=== PATIENT | female | born 1955 | race Caucasian/White ===

== ENCOUNTER 2016-05-25 02:34 | Inpatient (IN) | payer OTHER ==
[~2016-05-25] VITALS: Ht 154.9 cm; Wt 102.1 kg
[~2016-05-25 02:34] MED LIST: ALPRAZOLAM0.5 MG PO; EXCEDRIN MIGRAI1 TAB PO; FERROUS SULFAT325 M3 PO; FUROSEMIDE40 M1 PO; FUROSEMIDE40 MG PO; HYCET 325 MG/1473 ML PO; IBU800 MG PO; KLOR-CON 10MEQ10 MEQ PO; LOSARTAN POTASS1 TA2 PO; LOVENOX 4040 MG/0.4 SC; PANTOPRAZOLE SO40 MG PO; PREVACID 30MG30 MG PO; VENLAFAXINE H37.5 M1 PO; ZANTAC150 M1 PO; ZOFRAN ODT4 MG PO
--- NOTE | 2016-05-25 10:21 | Operative Report ---
Operative/Inv Procedure Report Surgery Date: 05/25/16 Name of Procedure: Right total knee arthroplasty Pre-Operative Diagnosis: Right knee primary osteoarthritis Post-Operative Diagnosis: Same With final pathology pending Estimated Blood Loss: scant Surgeon/Clothing Pattern Preparer: JAIME DE LA CRUZ,Derek BETHEA Anesthesia: block Implants: [place] triathlon total knee system-size 4 femur, size 4 tibia, 11 mm cruciate retaining polyethylene, 29 patella Drains: None Specimens: Femoral, tibial, patellar bone Microbiology: Urine Tourniquet: 55 minutes Complications: None Condition: Stable Operative Indication: Patient is a 61-year-old woman with a very long history of bilateral knee pain. She developed mechanical symptoms in addition to her increasing pain. Previous evaluation confirmed severe end-stage osteoarthritis of the knee. She was able to put off total knee arthroplasty for many years by treated with conservative measures including medications and injections activity modification. However more recently these measures did not provide any significant relief. She wished to proceed with total knee arthroplasty after risks, benefits and expectations were discussed which included but were not limited to persistent knee pain, need for subsequent surgery, infection, DVT, anesthesia risks, injury to blood vessel or nerve. Operative/Procedure Note Note: Patient was brought to the operating room and transferred to the operating table. Once under appropriate anesthesia the right lower extremity was prepped and draped in standard fashion. Preoperative IV antibiotics were given prophylactically. The leg was elevated exsanguinated and tourniquet was inflated to 300 mm of pressure. A standard anterior incision was made for anticipated medial parapatellar approach to the knee. Incision was taken down through subcutaneous tissue down to normal work underlying retinaculum. A medial retinacular approach with minimal extension into the quadriceps tendon was used to enter the knee. Ossify formations were excised. Patient had tricompartmental osteoarthritis severe. Remnants of the medial lateral meniscal tissues were excised. Remnants of the ACL excised. Knee was flexed patella was subluxed. Drill was used to enter the intramedullary canal the distal femur for the intramedullary guide. Cutting block was pinned in place for 6 valgus cut and the appropriate thickness cut. The femur was sized to a size 4 though she had somewhat of a asymmetric anterior posterior versus medial lateral dimension. Size 5 was too wide for her femur. Size 4 risked mild notching and the posterior condylar cut appeared to be too small with the appropriate positioning of the size 4 cutting block. The size 4 cutting block was pinned in place without altering position. This was followed by the 4 cuts.. I then used the external tibial alignment guide to prepare for the tibial cut. Medial lateral retractors were replaced. PCL retractor was applied and remainder of the medial lateral meniscal tissues were excised. PCL was recessed for balancing purposes. Dissection was taken on the medial aspect of the tibia for balancing purposes as well. I then pinned the cutting block to reproduce patient's posterior slope and accomplish a neutral medial to lateral orientation. Cut was made. The tibia was sized to a size 4. Size 4 tibia size 4 femur and a 9 mm insert were applied. The knee was taken out to full extension. Patient had symmetrical medial lateral balancing and no evidence of liftoff of the tibial tray. It appeared to be necessary to increase to 11 mm but this would be confirmed later on the case. I then measured the patella. The appropriate thickness was removed. The patella was sized to a size 29. 3 lug holes were drilled as medial as possible to maximize patellofemoral tracking. There was no need for a lateral release. Rotation was marked. The lug holes were drilled in the femur. All instruments rotation was removed from the knee and then I finished preparation of the tibia with the tibial punch with the appropriate rotation as previously determined. All instrumentation was removed. Copious irrigation the knee followed. I then mixed the cement back table. Once the cement was ready was applied to the dry clean bony surfaces of the tibia. The anterior chamfer bone of the femur was used to plug the intramedullary hole to minimize postoperative hemarthrosis and inflammation. The size 4 tibia was impacted in place and excess cement was removed with curettes. Cement was applied to the dry clean bony surfaces of the femur. The size 4 femoral component was impacted in place and excess cement was removed with curettes. The 11 mm insert was inserted and the knee was taken out to full extension. Cement was applied to dry clean bony surfaces of the patella. The size 29 patella was impacted in place and excess cement was removed with a knife. She has cement was hardening I did appear articular pericapsular injection of a cane with epinephrine and Toradol for postoperative pain and inflammation management. The knee was taken out flexion after the cement had hardened I checked for any prominent cement. There was no evidence of that copious irrigation the knee followed. I removed the trial component 11 mm area I was satisfied with the stability in full extension mid flexion and full flexion to gravity. Copious irrigation the tibial tray followed. I made sure was there was no remaining soft tissue, bone or cement fragments within the tibial tray. I impacted the definitive size 11 mm cruciate retaining component. The locking mechanism was confirmed. Copious irrigation followed. Tourniquet was deflated at 55 minutes. Hemostasis was obtained. No need for a drain. Retinaculum interrupted #1 Vicryl sutures. Subcutaneous tissues closed in 2 layers with 2-0 Vicryl suture and skin was closed running 3-0 Vicryl suture with the knee in flexion. Dressings were applied patient was awakened and taken recovery in good condition. No intraoperative complications blood loss was minimal. Discharge Disposition: PACU
[2016-05-25 12:10] VITALS: BP 110/64
[2016-05-25] MEDS ORDERED: COUMADIN5 M2 PO (13:06)
[2016-05-25] MEDS ORDERED: PERCOCET 5-3251 EACH PO (13:07)
--- NOTE | 2016-05-25 13:15 | Patient Discharge Instructions ---
Discharge Instructions General Discharge Information You were seen/treated for: RIGHT KNEE PAIN You had these procedures: RIGHT TOTAL KNEE REPLACEMENT Watch for these problems: INCREASING PAIN DESPITE THE USE OF PAIN MEDICATION, REDNESS, WARMTH, SWELLING. DRAINAGE OF ANY TYPE FROM INCISION. INABILITY TO BEAR WEIGHT ON RIGHT LEG. FEVER GREATER THAN 101.5. Do not soak the wound: Yes No bath, but you may shower: Yes Other wound care: KEEP WOUND CLEAN AND DRY, DAILY DRY DRESSING CHANGES. Special Instructions: YOU ARE TAKING A BLOOD THINNING MEDICATION CALLED COUMADIN. ANOTHER NAME FOR THIS MEDICATION IS WARFARIN. THE DOSE OF THIS MEDICATION MAY CHANGE DAILY. IT IS BASED ON LABWORK CALLED INR. YOUR INR WILL BE TESTED AT A MINIMUM OF 2X/ WEEK. THE RESULTS WILL BE COMMUNICATED WITH DR. SANDOVAL WHO WILL RECOMMEND HOW MUCH COUMADIN YOU ARE TO BE TAKING. PLEASE BE SURE TO CONTACT HIS OFFICE IF YOU HAVE NOT BEEN GIVEN INSTRUCTIONS REGARDING YOUR DOSE PRIOR TO TAKING IT. Diet Continue normal diet: Yes Recommended Diet: Regular Additional DIET Information: ADVANCE TOLERATED Activity Full Activity/No Limits: No Activity Self Limited: Yes Pounds, do NOT lift more than: 10 Additional ACTIVITY Info: WEIGHTBEAR TOLERATED ON RIGHT LEG Acute Coronary Syndrome Inclusion Criteria At DC or during hospital stay patient has or had the following: ACS DIAGNOSIS No Discharge Core Measures Meds if any: Prescribed or Continued at Discharge Meds if any: NOT Prescribed or Continued at Discharge Congestive Heart Failure Inclusion Criteria At DC or during hospital stay patient has or had the following: CHF DIAGNOSIS No Discharge Core Measures Meds if any: Prescribed or Continued at Discharge Meds if any: NOT Prescribed or Continued at Discharge Cerebrovascular accident Inclusion Criteria At DC or during hospital stay patient has or had the following: CVA/TIA Diagnosis No Discharge Core Measures Meds if any: Prescribed or Continued at Discharge Meds if any: NOT Prescribed or Continued at Discharge Venous thromboembolism Inclusion Criteria VTE Diagnosis No VTE Type NONE VTE Confirmed by (Test) NONE Discharge Core Measures - Per Current guidelines, there needs to be overlap - treatment for the first 5 days of Warfarin therapy. - If discharged on Warfarin prior to 5 days of - overlap therapy, the patient will need to be - assessed for post discharge needs including - *Post discharge parental anticoagulation - *Warfarin and/or parental anticoagulation education - *Follow up date to check INR post discharge At least 5 days overlap therapy as Inpatient No Meds if any: Prescribed or Continued at Discharge Note: Overlap Therapy is Warfarin and Anticoagulant Meds if any: NOT Prescribed or Continued at Discharge
--- NOTE | 2016-05-25 13:18 | Surgical Discharge Summary ---
See Addendum Visit Information Visit Dates Admission Date: 05/25/16 Discharge Date: 05/28/16 History of Present Illness Chief Complaint: RIGHT KNEE PAIN Medical History Blood Transfusion Hx: No Neurological: NONE EENT: NONE Cardiovascular: hypertension Respiratory: NONE Gastrointestinal: NONE Hepatic: NONE Renal: NONE Musculoskeletal: osteoporosis Psychiatric: anxiety Endocrine: NONE Blood Disorders: NONE Cancer(s): NONE MACHINE WHITENER/Reproductive: NONE History of MRSA: No History of VRE: No History of CDIFF: No Influenza Vaccine: 12/24/15 Surgical History Pertinent Surgical History: appendectomy, cholecystectomy, hernia repair- umbilical, LAP SLEEVE GASTRECTOMY LYPOMA REMOVED L SHOULDER Family History Relations & Conditions If Any: FATHER (Heart disease). Psychosocial History Who Do You Live With? Patient/Self Services at Home: None What is Your Primary Language? Swazi Review of Systems: SEE H&P Hospital Course Course Attending Physician: JAIME DE LA CRUZ,LAKE Primary Care Physician: GURMEET ROPER MD Hospital Course: SURY WAS ADMITTED TO THE HOSPITAL ON 05/25/2016 FOR AND ELECTIVE RIGHT TOTAL KNEE REPLACEMENT. SHE TOLERATED THE PROCEDURE WELL. SHE WAS TRANSFERRED TO A GENERAL SURGICAL FLOOR. HER DIET WAS ADVANCED AND TOLERATED. SHE VOIDED SPONTANEOUSLY. HER PAIN WAS WELL CONTROLLED WITH PO PAIN MEDICATIONS. HER VITAL SIGNS WERE STABLE AND WITHIN NORMAL LIMITS. SHE WAS EVALUATED AND TREATED BY PHYSICAL THERAPY. SHE WAS DEEMED APPROPRIATE FOR DISCHARGE WITH HOME PT SERVICES. Allergies: Coded Allergies: erythromycin base (Intermediate, GI DISTRESS 05/22/16) hydromorphone (Intermediate, NAUSEA 05/22/16) Disposition Summary Disposition Principal Diagnosis: RIGHT KNEE UNILATERAL PRIMARY OSTEOARTHRITIS Additional Diagnosis: NONE Discharge Disposition: home health services Discharge Instructions General Discharge Information Code Status: Full Code Patient's Diet: REGULAR, ADVANCE TOLERATED Patient's Activity: WEIGHTBEAR TOLERATED ON RIGHT LEG Follow-Up Instructions/Appts: PLEASE CALL OR CONTACT DR. SANDOVAL' OFFICE TO ARRANGE/CONFIRM FOLLOW UP APPOINTMENT. HE WOULD LIKE FOR YOU TO BE SEEN IN HIS OFFICE IN 2 WEEKS FROM DATE OF SURGERY. Medications at Discharge Discharge Medications: Continue taking these medications: VENLAFAXINE HCL (Venlafaxine HCl ER) 37.5 MG CAP.ER.24H 1 Capsule ORAL DAILY Qty = 30 LOSARTAN/HYDROCHLOROTHIAZIDE (Losartan-Hctz 100-25 MG Tab) 100 MG-25 MG TABLET 1 Tablet ORAL DAILY Qty = 30 Ferrous Sulfate (Ferrous Sulfate) 325 MG (65 MG IRON) TABLET 1 Tablet ORAL DAILY Ranitidine HCl (Zantac) 150 MG TABLET 1 Tablet ORAL DAILY Furosemide (Furosemide) 40 MG TABLET 1 Tablet ORAL DAILY as needed for EDEMAS Start taking the following new medications: Warfarin Sodium (Coumadin) 5 MG TABLET 1 Tablet ORAL DAILY Qty = 30 No Refills Instructions: DOSE SUBJECT TO CHANGE ON A DAILY BASIS. AWAIT SPECIFIC INSTRUCTIONS PRIOR TO TAKING. Oxycodone HCl/Acetaminophen (Percocet 5-325 MG Tablet) 5 MG-325 MG TABLET 1-2 Tablet ORAL EVERY 4-6 HOURS as needed for PAIN Qty = 36 No Refills Morphine Sulfate (Ms Contin) 15 MG TABLET.ER 1 Tablet ORAL TWICE DAILY Qty = 5 No Refills
--- NOTE | 2016-05-25 14:30 | PN- Orthopedic ---
See Addendum Subjective Subjective: Patient received on general surgical floor, s/p right total knee replacement. She tolerated the procedure well. She has tolerated po intake. Veliz catheter remains in place. On Q in place with good effect. Pain well controlled at this time. Objective Vital Signs and I&Os Vital Signs Date Time Temp Pulse Resp B/P Pulse O2 O2 Flow FiO2 Ox Delivery Rate 05/25 1342 84 110/64 04/ 1210 97.7 84 20 110/64 95 Room Air Room Air Intake & Output 05/25 1600 05/25 0800 04/ 0000 04/ 1600 05/24 0800 05/24 0000 Intake Total 480 Output Total Balance 480 Intake, Oral 480 Patient 225 lb Weight Physical Exam: General: Alert and oriented x3, no acute distress Cardiac: RRR, s1s2 Pulmonary: CTA bilaterally Abdomen: Non-tender, non-distended Extremities: Moves all extremities, distal sensation intact. Motor 5/5 in plantar and dorsi flexion. Skin warm and well perfused. DP pulses palpable bilaterally. Bilateral calves soft and non-tender. Surgical site: RIGHT knee, dressing dry and intact. Assessment/Plan Assessment/Plan This is a 61 year old female, POD 0, s/p right total knee replacement. -Coumadin to start tonight for dvt ppx, alps -PO percocet for pain, iv morphine for breakthrough if necessary -Vancomycin 1g x1 additional dose for abx ppx -Activity: WBAT, oob with pt -Diet: Advance as tolerated -Bowel regimen: Colace, senna as needed -Plan for d/c veliz catheter morning of pod 1 -Plan for d/c on Q and dressing change pod 2 -Plan for d/c to home on pod 3 with services -Will d/w Dr. Conley Core Measures/Miscellaneous Venous Thromboembolism VTE Risk Factors: Age > 40, Surgery VTE Contraindications: No Contraindications VTE Diagnosis: No Beta Savita Is Beta Savita a Home Med? No Antibiotics Is Patient on Antibiotics? Yes If Yes: prophylaxis
[2016-05-25 15:41] VITALS: BP 114/60
[2016-05-25 22:06] VITALS: BP 100/58
[2016-05-26 01:29] VITALS: BP 110/50
[2016-05-26 07:14] VITALS: BP 118/64
--- NOTE | 2016-05-26 07:26 | PN- Orthopedic ---
See Addendum Subjective Subjective: The patient was seen this morning postoperatively day #1. She reports that her pain is not adequately controlled at the current time. She reports receiving only Percocet which isn't helping. She has no other complaints the current time and is eager to get out of bed with physical therapy. Objective Vital Signs and I&Os Vital Signs Date Time Temp Pulse Resp B/P Pulse O2 O2 Flow FiO2 Ox Delivery Rate 05/26 0714 98.1 73 20 118/64 96 Room Air 05/26 0129 97.9 70 16 110/50 97 Room Air 05/25 2206 97.9 81 19 100/58 93 / 1541 97.9 97 20 114/60 96 Room Air 05/25 1342 84 110/64 05/25 1210 97.7 84 20 110/64 95 Room Air Room Air Intake & Output 05/26 0800 /04 0000 04/ 1600 / 0800 / 0000 / 1600 Intake Total 565 480 Output Total 150 650 Balance -150 565 -170 Intake, IV 225 Intake, Oral 340 480 Output, Urine 150 650 Patient 225 lb Weight Physical Exam: Gen.: Alert and in no obvious distress Skin: Warm and dry Extremities: Bilateral lower extremities are warm without calf tenderness or significant edema. Gross motor and sensory are intact. Right lower extremity surgical dressing is clean, dry, and intact. There is an On-Q pain pump in place. Assessment/Plan Assessment/Plan Assessment: 61-year-old female status post right total knee arthroplasty postoperative day #1. The patient is progressing as expected however her pain is not adequately managed at the current time. Plan: Add MS Contin 15mg po bid to current pain regiment Out of bed with physical therapy DC Jack catheter 1000 ML bolus of normal saline for borderline urine output and encourage increased by mouth intake Follow-up morning laboratory studies and we dose Coumadin to reach an INR between 2 and 3 Incentive spirometry GI and DVT prophylaxis For surgical dressing change tomorrow Core Measures/Miscellaneous Venous Thromboembolism VTE Risk Factors: Age > 40, Surgery VTE Contraindications: No Contraindications VTE Diagnosis: No Beta Savita Is Beta Savita a Home Med? No Antibiotics Is Patient on Antibiotics? No
[2016-05-26 08:07] LABS: ABSOLUTE BASOPHIL COUNT 0 /CUMM (0.0-0.2); ABSOLUTE EOSINOPHIL COUNT 0 /CUMM (0.0-0.7); ABSOLUTE GRANULOCYTE CT 12.1 /CUMM (1.4-6.5); ABSOLUTE LYMPH COUNT 1.7 /CUMM (1.2-3.4); ABSOLUTE MONOCYTE COUNT 0.8 /CUMM (0.10-0.60); BASOPHIL % 0.2 % (0.0-2.0); EOSINOPHIL % 0 % (0-5); GRANULOCYTE % 82.5 % (42.2-75.2); MEAN CORPUSCULAR HGB 29.2 PG (27.0-31.0); MEAN CORPUSCULAR HGB CONC 33.5 G/DL (33.0-37.0); MEAN PLATELET VOLUME 8.7 FL (7.4-10.4); PLATELET COUNT 244 /CUMM (130-400); RBC DISTRIBUTION WIDTH 14.1 % (11.5-14.5); RED BLOOD CELL CT 3.56 /CUMM (4.20-5.40); WHITE BLOOD CELL COUNT 14.6 /CUMM (4.8-10.8)
[2016-05-26 08:49] LABS: PT 11.5 SEC (9.4-12.5)
[2016-05-26 10:00] VITALS: BP 142/80
--- NOTE | 2016-05-26 14:00 | NUR ---
LATE ENTRY: PT SEEN BY ANESTHETIA STAFF WHO ADJUSTED PT'S ONQ PUMP TO 14 ML/HR TO BETTER ASSIST PT'S PAIN MANAGEMENT. WILL CONT TO MONITOR.
[2016-05-26 14:45] VITALS: BP 112/65
[2016-05-26 22:32] VITALS: BP 102/70
[2016-05-27 06:50] VITALS: BP 150/82
--- NOTE | 2016-05-27 07:46 | PN- Orthopedic ---
See Addendum Subjective Subjective: No acute overnight events reported. Patient states that pain is controlled well , although she does note some increasing discomfort between doses. OnQ has been d/c'd. Her biggest complaint now is that she has some gi discomfort that began shortly after recieving medications last night. She has been belching. She denies chest pain and shortness of breath. She denies vomitting although she states she has been somewhat nauseated. Objective Vital Signs and I&Os Vital Signs Date Time Temp Pulse Resp B/P Pulse O2 O2 Flow FiO2 Ox Delivery Rate 05/27 0650 99.0 88 18 150/82 95 Room Air 05/26 2232 98.0 78 19 102/70 94 05/26 1445 98.0 75 20 112/65 97 Room Air 05/26 1034 71 142/80 05/26 1000 97.6 71 18 142/80 98 Room Air Intake & Output 05/27 0800 05/27 0000 04 1600 05/26 0800 05/26 0000 05/25 1600 Intake Total 600 640 565 480 Output Total 800 350 150 650 Balance -200 -350 490 565 -170 Intake, IV 300 225 Intake, Oral 600 340 340 480 Output, Urine 800 350 150 650 Patient 225 lb Weight Physical Exam: General: Alert and oriented x3, no acute distress Cardiac: RRR, s1s2 Pulmonary: CTA bilaterally Abdomen: Non-tender, non-distended Extremities: Moves all extremities, distal sensation intact. Motor 5/5 in plantar and dorsi flexion. Skin warm and well perfused. DP pulses palpable bilaterally. Bilateral calves soft and non-tender. Surgical site: Right knee: Dressing dry and intact. Taken down. Steri strips in place, no drainage from wound. No surrounding erythema. OnQ removed. Dressing containing xeroform, 4x4, spandage reapplied. Assessment/Plan Assessment/Plan This is a 61 year old female, POD 2, s/p right tkr. Currently c/o gi discomfort. -Tums now, reassess, consider simethicon if no improvement -Stagger morning meds -Continue diet as tolerated -Continue current pain regimen -OOB, WBAT, rolling walker -F/U am labs -DVT ppx: coumadin, dose per inr, target 2-3 -Will d/w Dr. Conley Core Measures/Miscellaneous Venous Thromboembolism VTE Risk Factors: Age > 40, Surgery VTE Contraindications: No Contraindications VTE Diagnosis: No Beta Savita Is Beta Savita a Home Med? No Antibiotics Is Patient on Antibiotics? No
[2016-05-27 08:18] LABS: ABSOLUTE BASOPHIL COUNT 0 /CUMM (0.0-0.2); ABSOLUTE EOSINOPHIL COUNT 0.1 /CUMM (0.0-0.7); ABSOLUTE GRANULOCYTE CT 6.7 /CUMM (1.4-6.5); ABSOLUTE LYMPH COUNT 2.3 /CUMM (1.2-3.4); ABSOLUTE MONOCYTE COUNT 0.7 /CUMM (0.10-0.60); BASOPHIL % 0.5 % (0.0-2.0); EOSINOPHIL % 0.8 % (0-5); GRANULOCYTE % 68.8 % (42.2-75.2); HEMATOCRIT 29.4 % (37-47); MEAN CORPUSCULAR HGB 29.3 PG (27.0-31.0); MEAN CORPUSCULAR HGB CONC 33.5 G/DL (33.0-37.0); MEAN CORPUSCULAR VOLUME 87.5 FL (81.0-99.0); MEAN PLATELET VOLUME 8.8 FL (7.4-10.4); PLATELET COUNT 220 /CUMM (130-400); RBC DISTRIBUTION WIDTH 13.9 % (11.5-14.5); RED BLOOD CELL CT 3.36 /CUMM (4.20-5.40); WHITE BLOOD CELL COUNT 9.8 /CUMM (4.8-10.8)
[2016-05-27 14:18] VITALS: BP 134/80
--- NOTE | 2016-05-27 16:35 | RADIOLOGY REPORT ---
EXAMINATION: XR KNEE, RIGHT CLINICAL INFORMATION: Status post right total knee arthroplasty. COMPARISON: None TECHNIQUE: Two views of the right knee. FINDINGS: Postsurgical changes of total right knee arthroplasty are noted with intact hardware and satisfactory alignment. Cortical defect is noted within the distal anterior aspect of the right femur, seen on the lateral projection superior to the humeral component of the prosthesis. The soft tissues show changes consistent with recent surgery. IMPRESSION: Postsurgical changes of total right knee arthroplasty with intact hardware and satisfactory alignment. Cortical defect is identified superior to the femoral prosthesis, seen best on the lateral projection.
[2016-05-27 22:46] VITALS: BP 134/70
[2016-05-28 06:38] VITALS: BP 120/57
[2016-05-28 08:14] LABS: ABSOLUTE BASOPHIL COUNT 0.1 /CUMM (0.0-0.2); ABSOLUTE EOSINOPHIL COUNT 0.1 /CUMM (0.0-0.7); ABSOLUTE GRANULOCYTE CT 5.6 /CUMM (1.4-6.5); ABSOLUTE LYMPH COUNT 1.8 /CUMM (1.2-3.4); ABSOLUTE MONOCYTE COUNT 0.6 /CUMM (0.10-0.60); BASOPHIL % 0.7 % (0.0-2.0); EOSINOPHIL % 1.7 % (0-5); GRANULOCYTE % 68.3 % (42.2-75.2); HEMATOCRIT 28.8 % (37-47); MEAN CORPUSCULAR HGB 29.3 PG (27.0-31.0); MEAN CORPUSCULAR HGB CONC 33.8 G/DL (33.0-37.0); MEAN CORPUSCULAR VOLUME 86.7 FL (81.0-99.0); MEAN PLATELET VOLUME 8.6 FL (7.4-10.4); PLATELET COUNT 231 /CUMM (130-400); RBC DISTRIBUTION WIDTH 13.6 % (11.5-14.5); RED BLOOD CELL CT 3.32 /CUMM (4.20-5.40); WHITE BLOOD CELL COUNT 8.3 /CUMM (4.8-10.8)
[2016-05-28 08:21] LABS: PT 18.1 SEC (9.4-12.5)
--- NOTE | 2016-05-28 11:03 | PN- General Surgery ---
See Addendum Subjective Subjective: No overnight events. Pain is well controlled with oral pain meds. Was able to work was able to ambulate with assistance. No active complaints. Passing flatus and tolerating diet. No active complaints. Objective Vital Signs and I&Os Vital Signs Date Time Temp Pulse Resp B/P Pulse O2 O2 Flow FiO2 Ox Delivery Rate 05/28 0932 87 134/72 05/28 0638 99.1 76 20 120/57 93 Room Air 05/27 2246 97.6 89 20 134/70 98 Room Air 05/27 1418 98.3 98 18 134/80 96 Room Air Intake & Output 05/28 1600 05/28 0800 05/28 0000 05/27 1600 05/27 0800 05/27 0000 Intake Total 230 400 960 240 600 Output Total 650 750 600 600 200 800 Balance -650 -520 -200 360 40 -200 Intake, Oral 230 400 960 240 600 Output, Urine 650 750 600 600 200 800 Physical Exam: Appears in no distress, alert and oriented 3, resting in chair. Lung sounds were clear to auscultate bilaterally. Heart is regular rate and rhythm. Abdomen: Soft, Non-tender, non-distended, no rebound or guarding Extremities: skin is warm and well for well perfused. Able to move all extremities, motor and sensory intact bilaterally in the lower extremity. Palpable pulses were present in the lower extremity. Right knee: Postoperative site is clean dry and intact with dressing and Steri-Strips in place . No erythema, no drainage from wound. Assessment/Plan Assessment/Plan This is a 61 year old obese female with BMI of 42,s/p right total knee replacement postop day 3 doing well. Therefore plan is to continue the current pain regimen for pain control, physical therapy while in house. INR is 1.7 today which is improved form 1.4 ,will redose Coumadin at the same dosage 7.5 mg and anticipated discharge later today with home physical therapy. Core Measures/Miscellaneous Venous Thromboembolism VTE Risk Factors: Age > 40, Surgery VTE Contraindications: No Contraindications VTE Diagnosis: No Beta Savita Is Beta Savita a Home Med? No Antibiotics Is Patient on Antibiotics? No
[2016-05-28] MEDS ORDERED: MS CONTIN15 M2 PO (11:16)
--- NOTE | 2016-05-28 14:09 | NUR ---
Physical Therapy: Met with patient and Itzel Bruce (Patient Experience Elementary Supervisor). Discussed patient's issues she had with student physical therapist. Concerns were expressed and handeled. Pt reports feeling better at this time about her concerns.
[2016-05-28 14:21] VITALS: BP 124/68
[2016-05-28 21:59] VITALS: BP 132/66
[2016-05-29 07:24] VITALS: BP 160/86
[2016-05-29 08:39] LABS: PT 17.6 SEC (9.4-12.5)
[2016-05-29 10:02] VITALS: BP 158/86
--- NOTE | 2016-05-29 10:29 | PN- Orthopedic ---
Subjective Subjective: Patient reporting no acute overnight events. Ambulated this am with PT, tolerated well. Cleared PT on stairs yesterday. States she is feeling much better and more confident today. Denies chest pain, shortness of breath and difficulty breathing. Denies nausea and vomitting. Has not had bm but is passing flatus. Objective Vital Signs and I&Os Vital Signs Date Time Temp Pulse Resp B/P Pulse O2 O2 Flow FiO2 Ox Delivery Rate 05/29 1002 88 158/86 05/29 0724 98.2 90 20 160/86 99 Room Air 05/28 2159 97.7 83 20 132/66 94 Room Air 05/28 1421 98.9 77 20 124/68 97 Room Air Intake & Output 05/29 1600 05/29 0800 05/29 0000 05/28 1600 05/28 0805/28 0000 Intake Total 1200 230 400 Output Total 800 1550 750 600 Balance -800 -350 -520 -200 Intake, Oral 1200 230 400 Output, Urine 800 1550 750 600 Physical Exam: General: Alert and oriented x3, no acute distress Cardiac: RRR, s1s2 Pulm: CTA bilaterally Abdomen: Non-tender, non-distended Extremities: Moves all extremities, distal sensation intact. Motor intact. Skin warm and well perfused. Bilateral calves soft and non-tender Surgical site : Right knee, dressing dry and intact Assessment/Plan Assessment/Plan This is a 61 year old female, POD 4, s/p right tkr -F/U am labs -Dose coumadin per inr, target inr 2-3 -Continue current pain regimen -Diet as tolerated -Bowel regimen recommended -Activity: As desired, wbat -Dispo: Home today with [facility] -Will d/w Dr. Conley Core Measures/Miscellaneous Venous Thromboembolism VTE Risk Factors: Age > 40, Surgery VTE Contraindications: No Contraindications VTE Diagnosis: No Beta Savita Is Beta Savita a Home Med? No Antibiotics Is Patient on Antibiotics? No
--- NOTE | 2016-05-29 12:17 | NUR ---
NURSING NOTE: UNABLE TO EDIT TIME ON COZAAR AND EFFEXOR ON CMR PA UNABLE TO FIX. TIMES WRITTEN IN AND EXPLAINED TO PT
== END 2016-05-29 14:44 | disposition home health service (06) | DRG 470 ==
LOC: ENRESERVDT → ENRESERVTM → 2NB 02:34 → ENPENDDIS 02:34 → SDA 02:34 → DELPENDDIS 02:34 → SDA 07:00 → 2NB 12:23
PROVIDERS: Physician Assistant; Physician Assistant Surgical; ADMIT Orthopaedic Surgery
PROC: 0SRC0J9 Replacement of Right Knee Joint with Synthetic Substitute, Cemented, Open Approach (ICD-10-PCS; principal; 2016-05-25)
DX: M17.11 Unilateral primary osteoarthritis, right knee (principal); Z68.41 Body mass index [BMI] 40.0-44.9, adult; I10 Essential (primary) hypertension; K21.9 Gastro-esophageal reflux disease without esophagitis; E66.01 Morbid (severe) obesity due to excess calories
CPT/HCPCS: 2NBP; 36415; 73560-RT; 82436; 87086; 88305; 97110-GO; 97116-GO; 97530-GO; C1713; J0131; J0171; J1885; J2405; J2795; J3370; J3490; J7040

== ENCOUNTER 2017-05-06 15:19 | Inpatient (IN) | payer OTHER ==
[~2017-05-06] VITALS: Ht 154.9 cm; Wt 107.5 kg
[~2017-05-06 15:19] MED LIST changes: +COUMADIN5 M2 PO; +LOSARTAN-HCTZ1 EAC2 PO; +MS CONTIN15 M2 PO; +PERCOCET 5-3251 EACH PO; -VENLAFAXINE H37.5 M1 PO; +VENLAFAXINE H37.5 M4 PO
[2017-05-21] MEDS ORDERED: FERROUS SULFAT325 M3 PO (16:18)
[2017-05-21] MEDS ORDERED: ATIVAN0.5 M1 PO (16:19)
--- NOTE | 2017-05-24 09:51 | Operative Report ---
Operative/Inv Procedure Report Surgery Date: 05/24/17 Name of Procedure: Left total knee arthroplasty Pre-Operative Diagnosis: Primary osteoarthritis left knee Post-Operative Diagnosis: Same Estimated Blood Loss: less than 50ml Surgeon/Motorcycle Delivery Driver: Jarvis DE LA CRUZ,Derek Chen Anesthesia: block Implants: Jemima triathlon total knee system-size 5 femur, size 4 tibia, 11 mm cruciate retaining polyethylene, 29 patella Drains: None Specimens: bone/femoral-tibial, patella Microbiology: Urine Tourniquet: 62 minutes Complications: None Condition: Stable Operative Indication: Patient is a 62-year-old woman with a chronic history of knee pain. She's been diagnosed many years ago with osteoarthritis. Symptoms progressed and symptoms did not respond to normal conservative measures was recently. She underwent right total knee arthroplasty about a year ago and plan for the left total knee arthroplasty. She underwent previous treatments including medications and injections activity modification viscose supplementation and initially had responded to those treatments but ultimately symptoms continued to worsen and treatment measures did not provide significant long-term relief. She wished to proceed with total knee arthroplasty after risks benefits and expectations were discussed which included but were not limited to persistent knee pain, need for subsequent surgery, infection, DVT, injury to blood vessel or nerve, anesthesia risks Operative/Procedure Note Note: Patient was brought to the operating room and transferred to the operating table. Once under appropriate anesthesia the left lower extremity was prepped and draped in standard fashion. Preoperative IV antibiotic's were given prophylactically. Standard anterior she's was made after the leg was elevated exsanguinated and tourniquet was inflated to 350 minus of pressure. Incision was taken down sharply to the underlying retinaculum. A medial retinacular approach with a minimal extension into the quadriceps tendon was used to enter the knee joint. End-stage degenerative changes of the patellofemoral compartment and medial compartment and moderate changes lateral compartment were noted. Osteophytes were excised. Remnants of the degenerative medial and lateral meniscus meniscal tissues were excised. Remnants of the ACL was excised. Knee was flexed while subluxing the patella medially after placing retractors and position. The distal femur was entered into the intramedullary canal with the drill. The distal cutting jig was pinned in position for a 6 valgus cut. Soft tissues were protected throughout the procedure. The distal femoral cut was made. Femur was sized to a size 5. Size 5 cutting jig was pinned in place and the cuts were made. I then turned my attention to the tibia. The external tibial alignment guide was placed and the cutting guide was pinned in position for a neutral cut from medial to lateral and reproducing patient's posterior slow-paced on preoperative templating and intraoperative findings. Again retractors were placed protect soft tissues during this cut. PCL retractor was placed posteriorly cut was made. I was satisfied with the overall alignment and the amount of proximal tibia that was removed. Some soft tissue balancing was done just prior to this cut and was confirmed following the cut. I then also removed osteophytes from the posterior oozing curved osteotome followed by curet. I then did a trial reduction with a size 5 femur, size 4 tibia which match patient's anatomy and a 9 mm insert. This would be adjusted later on the case. The leg was taken out to full extension. I then placed 2 towel clamps on the patella and made my patellar cut. 3 lug holes were drilled and the 29 patella trial was put in position and the tracking was checked. Good tracking. No need for lateral release thisfindingbutthiswouldbecheckedlateroninthecaseaftertourniquetwasdef[facility].Thetrialcomponentswerethen[facility] [place].[facility] finished preparation of the proximal tibia with the appropriate sized tibial punch. The previous rotation was marked and the preparation of femur and tibia was finished with this rotation. 2 lug holes were drilled in the femur prior to removal the trial components. Copious irrigation of the followed. I used the anterior chamfer bone to plug the distal femur to minimize postoperative hemarthrosis and swelling. After copious irrigation was finished and cement was being mixed on the back table was applied to the dry clean bony surfaces of the tibia. Size 4 tibial component was impacted in place and excess cement was removed with curettes. Cement was applied to the dry clean bony surfaces of distal femur and the size 5 femur was impacted in place excess cement was removed with curettes. 9 mm insert was placed and the knee and knee was taken out to full extension area cement was applied to the dry clean bony surfaces of the patella. The size 29 patella was impacted in place and excess cement was removed with a knife. As cement hardening process I did appear articular. Capsular injection of a cocktail which included ropivacaine with epinephrine and Toradol to try to minimize postoperative process and inflammation. Once cement hardened I took the knee through range of motion. Small pieces of excess cement removed with the osteotome area I did a trial reduction with an 11 mm polyethylene component as well as was satisfied with the 11 mm full extension good mid flexion stability and full flexion to gravity small is much as the posterior thigh allowed in flexion. Trial polyethylene was removed. Copious irrigation the tibial tray followed. I made sure there was no remaining soft tissue, bone fragment or cement fragment within the tibial tray and then impacted the definitive size 11 mm cruciate retaining polyethylene in position and the locking mechanism was confirmed. The knee was taken out to full extension and the stability was checked again. I was satisfied. Copious irrigation the knee followed. Tourniquet was deflated at 62 minutes. Hemostasis was obtained. No need for a drain. Every level of closure was followed by copious irrigation. The retinacular incision and minimal extension to the quadriceps tendon was closed with interrupted #1 Vicryl sutures. Subcutaneous tissues closed in 2 layers with 2-0 Vicryl due to the depth of the wound. Skin was closed running 3-0 Vicryl suture with the knee in flexion. Progestins were applied and patient was awakened and taken to recovery room in good condition. No intraoperative complications. Blood loss was minimal to less than 50 mL
--- NOTE | 2017-05-24 11:17 | Admission Core Measures ---
Acute Coronary Syndrome (CM) ACS Core Measures Acute Coronary Syndrome Diagnosis No Congestive Heart Failure (NEW) CHF Core Measures Congestive Heart Failure Diagnosis No Cerebrovascular Accident (NEW) CVA Core Measures CVA/TIA Diagnosis No Venous Thromboembolism VTE Core Arash (View Protocol) VTE Risk Factors Surgery No Mechanical VTE Prophylaxis d/t N/A MechProphylax Ordered No VTE Pharm Prophylaxis d/t NA PharmProphylax ordered Problem List As ranked by this Provider includes Assessment & Plan 1. Unilateral primary osteoarthritis, left knee HOME MEDS Home Med List Ferrous Sulfate 325 MG (65 MG IRON) TABLET 1 TAB PO DAILY SUPPLEMENT ( Reported) Furosemide 40 MG TABLET 0.5-1 TAB PO DAILY PRN EDEMA (Reported) Lorazepam (Ativan) 0.5 MG TABLET 1 TAB PO PRN ANXIETY (Reported) Losartan/Hydrochlorothiazide (Losartan-Hctz 100-25 MG Tab) 100 MG-25 MG TABLET 1 TAB PO DAILY BP (Reported) Venlafaxine HCl (Venlafaxine HCl ER) 37.5 MG CAP.ER.24H 1 CAP PO DAILY MENTAL HEALTH (Reported)
--- NOTE | 2017-05-24 11:19 | Patient Discharge Instructions ---
Discharge Instructions General Discharge Information You were seen/treated for: Left knee pain related to unilateral primary osteoarthritis You had these procedures: Left total knee replacement Watch for these problems: Increasing pain despite the use of pain medication Increasing redness, warmth or swelling Drainage of any type from incision Inability to bear weight on operative leg Persistent nausea and vomiting Fever greater than 101.5 degrees Do not soak the wound: Yes No bath, but you may shower: Yes Other wound care: Please keep wound clean and dry. No ointments or lotions of any type on or near incision at any time. No exceptions. Your dressing will be changed by your nurse on the second day after your surgery. Daily dry dressing changes are recommended each day thereafter. Do not soak your wound in a bath at any time until otherwise indicated by your surgeon. You may shower, please dry wound immediately after shower with a clean towel. Special Instructions: Constipation: Pain medication can cause constipation. Dr. Conley has recommended that you take Colace and miralax each day. You may discontinue this medication if you develop loose stool or diarrhea. If you wish to continue this medication, it is available over the counter. If you are unable to move your bowels after several days, if you are unable to pass gas and are developing bloating, nausea, or vomiting as a result, please contact your doctor. Diet Continue normal diet: Yes Recommended Diet: Regular Activity Full Activity/No Limits: No Activity Self Limited: Yes Pounds, do NOT lift more than: 10 Acute Coronary Syndrome Inclusion Criteria At DC or during hospital stay patient has or had the following: ACS DIAGNOSIS No Discharge Core Measures Meds if any: Prescribed or Continued at Discharge Meds if any: NOT Prescribed or Continued at Discharge Congestive Heart Failure Inclusion Criteria At DC or during hospital stay patient has or had the following: CHF DIAGNOSIS No Discharge Core Measures Meds if any: Prescribed or Continued at Discharge Meds if any: NOT Prescribed or Continued at Discharge Cerebrovascular accident Inclusion Criteria At DC or during hospital stay patient has or had the following: CVA/TIA Diagnosis No Discharge Core Measures Meds if any: Prescribed or Continued at Discharge Meds if any: NOT Prescribed or Continued at Discharge Venous thromboembolism Inclusion Criteria VTE Diagnosis No VTE Type NONE VTE Confirmed by (Test) NONE Discharge Core Measures - Per Current guidelines, there needs to be overlap - treatment for the first 5 days of Warfarin therapy. - If discharged on Warfarin prior to 5 days of - overlap therapy, the patient will need to be - assessed for post discharge needs including - *Post discharge parental anticoagulation - *Warfarin and/or parental anticoagulation education - *Follow up date to check INR post discharge At least 5 days overlap therapy as Inpatient No Meds if any: Prescribed or Continued at Discharge Note: Overlap Therapy is Warfarin and Anticoagulant Meds if any: NOT Prescribed or Continued at Discharge
--- NOTE | 2017-05-24 11:21 | Surgical Discharge Summary ---
Visit Information Visit Dates Admission Date: 05/24/17 Discharge Date: 05/28/17 History of Present Illness Chief Complaint: Left knee pain related to unilateral primary osteoarthritis Medical History Neurological: NONE EENT: NONE Cardiovascular: hypertension Respiratory: NONE Gastrointestinal: NONE Hepatic: NONE Renal: NONE Musculoskeletal: osteoporosis Psychiatric: anxiety Endocrine: NONE Blood Disorders: NONE Cancer(s): NONE MANAGER CUSTOM/Reproductive: NONE History of MRSA: No History of VRE: No History of CDIFF: No Influenza Vaccine: 12/24/15 Surgical History Pertinent Surgical History: appendectomy, cholecystectomy, hernia repair- umbilical, LAP SLEEVE GASTRECTOMY LYPOMA REMOVED L SHOULDER Family History Relations & Conditions If Any: FATHER (Heart disease). Psychosocial History Who Do You Live With? Patient/Self Services at Home: None What is Your Primary Language? Spanish Review of Systems: See H&P Hospital Course Course Attending Physician: Jarvis DE LA CRUZ,Gustavo Primary Care Physician: Noel Lewis MD Hospital Course: Patient was admitted to the hospital for an elective total joint replacement. The procedure was tolerated well and patient was transferred to a general surgical floor. Diet was advanced and tolerated, and the patient voided spontaneously. The patient was evaluated and treated by physical therapy. At the time of hospital discharge, the vital signs were stable, neurovascular status was intact, and pain was controlled with the use of oral pain medications. Allergies: Coded Allergies: Anesthetics - Amide Type (NAUSEA 05/21/17) Anesthetics - Marcela Type- Parabens (NAUSEA 05/21/17) erythromycin base (Intermediate, GI DISTRESS 05/22/16) hydromorphone (Intermediate, NAUSEA 05/22/16) Disposition Summary Disposition Principal Diagnosis: Left knee unilateral primary osteoarthritis Additional Diagnosis: None Discharge Disposition: SNF Discharge Instructions General Discharge Information Code Status: Full Code Patient's Diet: Regular, advance as tolerated Patient's Activity: WBAT Follow-Up Instructions/Appts: Follow up with Dr. Conley in two weeks from date of surgery Medications at Discharge Discharge Medications: Continue taking these medications: Venlafaxine HCl (Venlafaxine HCl ER) 37.5 MG CAP.ER.24H 1 Capsule ORAL DAILY Losartan/Hydrochlorothiazide (Losartan-Hctz 100-25 MG Tab) 100 MG-25 MG TABLET 1 Tablet ORAL DAILY Furosemide (Furosemide) 40 MG TABLET 0.5-1 Tablet ORAL DAILY as needed for EDEMA Ferrous Sulfate (Ferrous Sulfate) 325 MG (65 MG IRON) TABLET 1 Tablet ORAL DAILY Lorazepam (Ativan) 0.5 MG TABLET 1 Tablet ORAL as needed for ANXIETY Start taking the following new medications: Apixaban (Eliquis) 2.5 MG TABLET 2.5 Milligram ORAL TWICE DAILY Qty = 84 No Refills Hydrocodone/Acetaminophen (Hydrocodon-Acetaminophen 5-325) 5 MG-325 MG TABLET 1-2 Tablet ORAL EVERY 4 HOURS NEEDED as needed for PAIN Qty = 30 No Refills Docusate Sodium (Docusate Sodium) 100 MG CAPSULE 100 Milligram ORAL TWICE DAILY Qty = 14 No Refills
[2017-05-24 12:34] VITALS: BP 130/60
--- NOTE | 2017-05-24 14:03 | PN- Orthopedic ---
Subjective Subjective: Post op check Awake and alert post op No specific complaints Denies nausea, pain is well controlled Has not been out of bed yet Objective Vital Signs and I&Os Vital Signs Date Time Temp Pulse Resp B/P B/P Pulse O2 O2 Flow FiO2 Mean Ox Delivery Rate 05/24 1234 95.7 92 16 130/60 99 Intake & Output 05/24 1600 05/24 0800 05/24 0000 05/23 1600 05/23 0800 05/23 0000 Intake Total Output Total Balance Patient 237 lb Weight Physical Exam: vss, afebrile General: alert and oriented times three Chest: clear anteriorly bilaterally, RRR Abd: soft, good bs Ext: warm, no edema, normosensate LLE, good 5/5 GRACE LLE Wd: dressed, dry, ice pack in place On Q in place Current Medications: Current Medications Sig/Nimisha Start time Last Medication Dose Route Stop Time Status Admin Acetaminophen 650 MG ONCE 05/25 0000 DC PO 05/25 2359 Acetaminophen 0 .STK-MED ONE 05/24 0559 DC PO Apixaban 2.5 MG BID 05/25 1000 AC PO Celecoxib 400 MG ONCE 05/25 0000 DC PO 05/25 235 Dexamethasone 10 MG ONCE 05/25 0000 DC IV 05/25 2359 Dexamethasone 0 .STK-MED ONE 05/24 0658 DC .ROUTE Dextrose/Lactated 1,000 ML Q13H 05/24 1215 AC Ringer's IV Docusate Sodium 100 MG DAILY NEEDED PRN 05/24 1215 AC PO Furosemide 20 MG DAILY PRN 05/24 1000 AC PO Gabapentin 300 MG ONCE 05/25 0000 DC PO 05/25 235 Gabapentin 0 .STK-MED ONE 05/24 0559 DC PO Hydrochlorothiazide 25 MG DAILY 05/25 1000 AC PO Losartan Potassium 100 MG DAILY 05/25 1000 AC PO Morphine Sulfate 2 MG Q3P PRN 05/24 1215 AC IV Morphine Sulfate 4 MG Q3P PRN 05/24 1215 AC IV Ondansetron HCl 4 MG Q6P PRN 05/24 1215 AC IV Oxycodone HCl 10 MG ONCE 05/25 0000 DC PO 05/25 2359 Oxycodone HCl 0 .STK-MED ONE 05/24 0659 DC PO Oxycodone/ 1 TAB Q4P PRN 05/24 1215 AC Acetaminophen PO Oxycodone/ 2 TAB Q4P PRN 05/24 1215 AC Acetaminophen PO Polyethylene Glycol 17 GM DAILY NEEDED PRN 05/24 1215 AC PO Ropivacaine 500 ML ONCE ONE 05/24 0900 DC ON-Q Ball 1 BAG INJ 05/24 0901 Scopolamine HBr 1 PAT ONCE 05/25 0000 DC TOP 05/25 2359 Scopolamine HBr 0 .STK-MED ONE 05/24 0658 DC TOP Senna/Docusate Sodium 2 TAB AT BEDTIME NEED.. 05/24 1215 AC PO Vancomycin HCl 1,500 MG ONCE ONE 05/24 1900 AC Dextrose/Water 250 ML IV 05/24 2039 Vancomycin HCl 1,500 MG ONCE 05/24 0000 DC Sodium Chloride 250 ML IV 05/24 2359 Venlafaxine HCl 37.5 MG DAILY 05/24 1000 AC PO Assessment/Plan Assessment/Plan 62yo female s/p L TKR pain management - On Q per anesthesia WBAT - PT eliquis for dvt ppx dc planning - pts goal is to go home after discharge Core Measures Venous Thromboembolism VTE Risk Factors Surgery No Mechanical VTE Prophylaxis d/t N/A MechProphylax Ordered No VTE Pharm Prophylaxis d/t NA PharmProphylax ordered
[2017-05-24 14:29] VITALS: BP 136/72
[2017-05-24 16:00] VITALS: BP 132/70
[2017-05-24 18:00] VITALS: BP 110/60
[2017-05-24 20:00] VITALS: BP 112/70
[2017-05-25] VITALS: BP 136/72
[2017-05-25 03:59] VITALS: BP 132/60
--- NOTE | 2017-05-25 07:53 | PN- Orthopedic ---
See Addendum Subjective Subjective: Patient unable to tolerate Percocet due to nausea and vomiting. There is no fever or flulike illness overnight, pain is controlled IV morphine. She has been able to void since her Jack was this morning. No other events overnight Objective Vital Signs and I&Os Vital Signs Date Time Temp Pulse Resp B/P B/P Pulse O2 O2 Flow FiO2 Mean Ox Delivery Rate 05/25 0359 98.1 78 18 132/60 95 Room Air 04/ 0000 97.8 80 18 136/72 94 Room Air 05/24 2000 97.6 88 18 112/70 92 Room Air / 1800 97.8 85 18 110/60 94 / 1600 97.5 85 20 132/70 95 Room Air 05/24 1429 98.2 96 17 136/72 95 Room Air / 1234 95.7 92 16 130/60 99 Intake & Output 05/25 0800 04/ 0000 04/02 1600 / 0800 / 0000 04 1600 Intake Total 840 1200 650 Output Total 150 Balance 840 1050 650 Intake, IV 600 600 400 Intake, Oral 240 600 250 Output, Urine 150 Patient 237 lb Weight Physical Exam: Well-developed well-nourished no apparent distress. HEENT: Atraumatic, extraocular motion intact Neck: Supple, no lymphadenopathy Respiratory: No respiratory distress Extremities: No edema LEFT lower extremity dressing in place, Incision line is clean dry and intact with minimal bloody drainage. No signs of infection. Mild joint effusion Range of motion is 0-75. Compression wrap in place. On Q in place ALPS in place Neurovascularly intact distally Bilateral calves are supple, nontender. Neuro: Alert and oriented x3 Psych: Mood affect normal, normal memory normal judgment. Skin: Warm and dry, no rash on exposed skin Results Last 48 Hours of Labs: Laboratory Tests 05/25 0655 Chemistry Sodium Pending Potassium Pending Chloride Pending Carbon Dioxide Pending Anion Gap Pending BUN Pending Creatinine Pending BUN/Creatinine Ratio Pending Hematology CBC w Diff Pending WBC Pending RBC Pending Hgb Pending Hct Pending MCV Pending MCH Pending MCHC Pending RDW Pending Plt Count Pending MPV Pending Assessment/Plan Assessment/Plan Postop day 1 status post left total knee arthroplasty Perioperative antibiotics. Pain medication as needed. Switch from Percocet to Vicodin which she has tolerated in the past Out of bed Physical therapy, weightbearing as tolerated DC IV fluids Regular diet Follow a.m. labs Eliquis for DVT prophylaxis starting this morning ALPS for DVT prophylaxis Regular home meds Continue on Q until tomorrow Dressing change postop day 2 Plan for discharge home postop day 3 with VNA Core Measures Venous Thromboembolism VTE Risk Factors Surgery No Mechanical VTE Prophylaxis d/t N/A MechProphylax Ordered No VTE Pharm Prophylaxis d/t NA PharmProphylax ordered
[2017-05-25 08:38] LABS: ABSOLUTE BASOPHIL COUNT 0 /CUMM (0.0-0.2); ABSOLUTE EOSINOPHIL COUNT 0 /CUMM (0.0-0.7); ABSOLUTE GRANULOCYTE CT 5.6 /CUMM (1.4-6.5); ABSOLUTE LYMPH COUNT 1.4 /CUMM (1.2-3.4); ABSOLUTE MONOCYTE COUNT 0.5 /CUMM (0.10-0.60); BASOPHIL % 0.4 % (0.0-2.0); EOSINOPHIL % 0.4 % (0-5); MEAN CORPUSCULAR HGB 29.5 PG (27.0-31.0); MEAN CORPUSCULAR HGB CONC 34.3 G/DL (33.0-37.0); MEAN CORPUSCULAR VOLUME 86.2 FL (81.0-99.0); MEAN PLATELET VOLUME 8.9 FL (7.4-10.4); PLATELET COUNT 199 /CUMM (130-400); RBC DISTRIBUTION WIDTH 13.5 % (11.5-14.5); RED BLOOD CELL CT 3.37 /CUMM (4.20-5.40); WHITE BLOOD CELL COUNT 7.6 /CUMM (4.8-10.8)
[2017-05-25 14:17] VITALS: BP 132/60
[2017-05-25 21:17] VITALS: BP 150/80
[2017-05-26 06:20] VITALS: BP 154/80
--- NOTE | 2017-05-26 07:46 | PN- Orthopedic ---
See Addendum Subjective Subjective: Patient reports pain is well controlled with Vicodin. She reports her dressing was changed yesterday by Dr. Hall. She reports ambulating with PT. Tolerating a regular diet and voiding spontanously. She offers no other complaints. Denies numbness/tingling, chest pain, fever or chills. Objective Vital Signs and I&Os Vital Signs Date Time Temp Pulse Resp B/P B/P Pulse O2 O2 Flow FiO2 Mean Ox Delivery Rate 05/27 619 98.7 87 20 154/80 96 Room Air 05/26 0000 95 Room Air 05/25 2117 99.0 100 22 150/80 95 Room Air 05/25 1417 98.2 86 18 132/60 96 Room Air 05/25 1013 78 123/60 Intake & Output 05/26 0800 05/26 0000 05/25 1600 05/25 0800 05/25 0000 05/24 1600 Intake Total 002 766 6027 840 1200 650 Output Total 800 150 Balance 100 480 166 655 9687 650 Intake, IV 0 0 600 600 400 Intake, Oral 408 534 0246 240 600 250 Number 0 0 Bowel Movements Output, Urine 800 150 Patient 237 lb Weight Physical Exam: Gen - awake an alert in nad Cardiac - S1S2 noted Lungs - CTAB Ext - Left knee dressing c/d/i and removed, incision with steri strips in place, healing well with no signs of infection, mild edema, redressed with abd and tape , moves all extremities, motor an sensory intact, compartment soft, no significant edema or calf tenderness B/L Assessment/Plan Assessment/Plan 62 F POD 1 s/p L TKA, recovering well Cont reg diet Pain regimen, ice prn OOB w/ PT, WBAT DVT ppx - Eliquis bid, alps GI ppx on board Home meds on board Cont dry daily dressing changes Encourage IS Anticipate d/c home with [facility] tomorrow Will d/w Dr. Hall Core Measures Venous Thromboembolism VTE Risk Factors Surgery No Mechanical VTE Prophylaxis d/t N/A MechProphylax Ordered No VTE Pharm Prophylaxis d/t NA PharmProphylax ordered
--- NOTE | 2017-05-26 12:16 | RADIOLOGY REPORT ---
EXAMINATION: XR KNEE, LEFT CLINICAL INFORMATION: Status post left knee arthroplasty. COMPARISON: Contralateral right knee films dated 05/27/2016. TECHNIQUE: Two views of the left knee performed on 4 images. FINDINGS: The patient is status post total left knee arthroplasty with the prosthetic components well seated within the [place] bone. No hardware failure is seen. There is prominent soft tissue swelling around the anterior aspect of the knee with some subcutaneous emphysema noted, consistent with postoperative state. On one of the frontal views, there is a cortical offset with associated linear lucency seen in the medial metaphysis of the distal femur, raising the suspicion of a subtle hairline fracture. Less likely, this finding may be related to a prominent nutrient/vascular channel. Correlation with preoperative films would be helpful. IMPRESSION: 1. Normal alignment status post total left knee arthroplasty. 2. Question of subtle nondisplaced hairline fracture of the distal medial femoral metaphysis versus prominent nutrient/vascular channel. Correlation with preoperative films may be helpful in further evaluating these findings.
[2017-05-26 13:58] VITALS: BP 148/78
[2017-05-26 22:18] VITALS: BP 138/80
--- NOTE | 2017-05-27 07:26 | PN- Orthopedic ---
See Addendum Subjective Subjective: 62-year-old female postop day 3 status post left total knee arthroplasty. Still with moderate pain and difficulty ambulating, did not do well with therapy yesterday according to patient. No medical complaints, no fever or flulike illness, no chest pain or shortness of breath Objective Vital Signs and I&Os Vital Signs Date Time Temp Pulse Resp B/P B/P Pulse O2 O2 Flow FiO2 Mean Ox Delivery Rate 05/26 2218 98.5 93 19 138/80 96 Room Air 05/26 1358 98.3 99 18 148/78 96 Room Air 05/26 1024 98.7 87 20 154/80 Intake & Output 05/27 0800 05/27 0000 05/26 1600 05/26 0800 05/26 0000 05/25 1600 Intake Total 250 441 033 9707 Output Total 800 Balance 250 100 480 850 Intake, IV 10 0 0 Intake, Oral 240 652 012 8153 Number 0 0 Bowel Movements Output, Urine 800 Physical Exam: Well-developed well-nourished no apparent distress. HEENT: Atraumatic, extraocular motion intact Neck: Supple, no lymphadenopathy Respiratory: No respiratory distress Extremities: No edema LEFT lower extremity dressing in place, Incision line is clean dry and intact. No signs of infection. Mild joint effusion Range of motion is 0-45. Neurovascularly intact distally Bilateral calves are supple, nontender. Neuro: Alert and oriented x3 Psych: Mood affect normal, normal memory normal judgment. Skin: Warm and dry, no rash on exposed skin Assessment/Plan Assessment/Plan Postop day 3 status post left total knee arthroplasty Pain medication as needed. Out of bed with physical therapy, will need to do stairs today. Daily dressing changes, dry steril dressing. Eliquis for DVT prophylaxis. Continue home meds, GI prophylaxis. Discharge home today with [facility] services if clears physical therapy. Core Measures Venous Thromboembolism VTE Risk Factors Surgery No Mechanical VTE Prophylaxis d/t N/A MechProphylax Ordered No VTE Pharm Prophylaxis d/t NA PharmProphylax ordered
[2017-05-27 07:29] VITALS: BP 132/78
[2017-05-27 15:29] VITALS: BP 108/70
[2017-05-27 22:14] VITALS: BP 112/80
[2017-05-28 07:03] VITALS: BP 116/80
--- NOTE | 2017-05-28 07:34 | PN- Orthopedic ---
See Addendum Subjective Subjective: 62-year-old female postop day #4 after right total knee arthroplasty. She is doing well without complaints this morning she does have some mild constipation. No fevers chills her pain is controlled. Objective Vital Signs and I&Os Vital Signs Date Time Temp Pulse Resp B/P B/P Pulse O2 O2 Flow FiO2 Mean Ox Delivery Rate 05/28 0703 98.2 75 18 116/80 96 Room Air 05/27 2214 98.0 85 18 112/80 97 Room Air 05/27 1529 97.8 90 20 108/70 94 04/05 0922 98.1 93 20 132/78 Intake & Output 05/28 0800 / 0000 05/27 1600 05/27 0800 05/27 0000 05/26 1600 Intake Total 900 500 260 250 Output Total Balance 900 500 260 250 Intake, IV 20 10 Intake, Oral 900 500 240 240 Physical Exam: On physical exam her vital signs are stable and she has remained afebrile. Chest is clear to auscultation symmetric without rales rhonchi or wheezes heart regular rate rhythm without murmurs rubs gallops abdomen is soft. On examination of the left knee range of motion is limited due to pain dressings are removed and the wound is clean dry and intact without erythema there is moderate edema to the knee as compared to the right leg. Calves are soft bilaterally distal pulses intact. Admission Lab Results I reviewed the following labs: Labs have remained stable her H&H is 9.9 Assessment/Plan Assessment/Plan And today patient will be going home QUESTIONS have been answered she will remain on Ala-Anamika S she is tolerating a regular diet she has not had a bowel movement yet I will make sure that she has Colace and Senokot for bowel regime. We'll follow up in the office as scheduled Core Measures Venous Thromboembolism VTE Risk Factors Surgery No Mechanical VTE Prophylaxis d/t N/A MechProphylax Ordered No VTE Pharm Prophylaxis d/t NA PharmProphylax ordered
[2017-05-28] MEDS ORDERED: DOCUSATE SODIU100 M3 PO (08:04)
[2017-05-28] MEDS ORDERED: ELIQUIS2.5 M1 PO (08:04)
[2017-05-28] MEDS ORDERED: HYDROCODON-ACE1 EAC2 PO (08:04)
[2017-05-28 09:57] VITALS: BP 116/80
== END 2017-05-28 12:08 | disposition home health service (06) | DRG 470 ==
LOC: SDA 05-24 02:37 → ENRESERV 05-24 11:00 → ENTRNSPT 05-24 11:57 → 2NA 05-24 12:15 → EDTRNSPT 05-24 12:21 → EDTRNSPTSTS 05-24 12:21 → CMPTRNSPT 05-24 12:49 → ENPENDDIS 05-28 08:13 → ENTRNSPT 05-28 11:37 → EDTRNSPT 05-28 12:05 → EDTRNSPTSTS 05-28 12:05 → 2NA 05-28 12:08 → CMPTRNSPT 05-28 12:24
PROVIDERS: Physician Assistant Surgical
PROC: 0SRD0J9 Replacement of Left Knee Joint with Synthetic Substitute, Cemented, Open Approach (ICD-10-PCS; principal; 2017-05-24)
PROC: 3E0T3BZ Introduction of Anesthetic Agent into Peripheral Nerves and Plexi, Percutaneous Approach (ICD-10-PCS; principal; 2017-05-24)
DX: M17.12 Unilateral primary osteoarthritis, left knee (principal); F41.0 Panic disorder [episodic paroxysmal anxiety]; G43.909 Migraine, unspecified, not intractable, without status migrainosus; I10 Essential (primary) hypertension; Z88.1 Allergy status to other antibiotic agents; Z88.5 Allergy status to narcotic agent; Z98.84 Bariatric surgery status; Z90.49 Acquired absence of other specified parts of digestive tract
CPT/HCPCS: 2NAP; 36415; 36592; 73560-LT; 82436; 87086; 88305; 93005; 93010; 97116-GO; 97161-GP; 97530-GO; C1713; J0131; J0171; J1100; J1885; J2405; J2795; J3370; J3490; J7040; J7060